=== PATIENT | female | born 1975 | race Caucasian/White ===

== ENCOUNTER 2018-09-27 14:02 | Emergency (ER) | payer MEDICAID ==
[~2018-09-27] VITALS: Ht 170.2 cm; Wt 60.8 kg
[2018-09-27 15:33] LABS: BASOPHILS % (AUTO) 0.4 % (0-1); EOSINOPHILS # (AUTO) 0.2 X10'3 (0-0.9); EOSINOPHILS % (AUTO) 2.9 % (0-6); HEMATOCRIT 40.4 % (35.0-45.0); HEMOGLOBIN 13.3 g/dl (12.0-16.0); LYMPHOCYTES % (AUTO) 26.3 % (21-51); MEAN CORPUSCULAR HEMOGLOBIN 30.8 PG (27.0-31.0); MEAN CORPUSCULAR HGB CONC 32.9 % (33.0-36.5); MEAN CORPUSCULAR VOLUME 93.6 FL (78-98); MEAN PLATELET VOLUME 7.8 FL (7.4-10.4); MONOCYTES # (AUTO) 0.5 X10'3 (0-0.9); MONOCYTES % (AUTO) 6.6 % (2-12); NEUTROPHILS # (AUTO) 4.9 X10'3 (1.8-7.7); NEUTROPHILS % (AUTO) 63.8 % (42-75); PLATELET COUNT 353 X10'3 (140-440); RED BLOOD COUNT 4.32 X10'6 (4.20-5.60); RED CELL DISTRIBUTION WIDTH 13.8 % (11.5-14.5); WHITE BLOOD COUNT 7.7 X10'3 (4.5-11.0)
[2018-09-27 15:49] LABS: ALANINE AMINOTRANSFERASE 134 U/L (12-78); ALBUMIN 4.1 G/DL (3.4-5.0); ALBUMIN/GLOBULIN RATIO 0.9 (1.1-1.5); ALKALINE PHOSPHATASE 89 IU/L (46-116); ANION GAP 12 (8-16); ASPARTATE AMINO TRANSFERASE 102 U/L (10-37); BILIRUBIN,TOTAL 0.3 MG/DL (0.1-1.0); BLOOD UREA NITROGEN 11 MG/DL (7-18); BUN/CREATININE RATIO 14.5 (6.6-38.0); CALCIUM 9.1 MG/DL (8.5-10.1); CHLORIDE 105 MMOL/L (99-107); CREATININE 0.76 MG/DL (0.40-0.90); ETHANOL 0.129 GM/DL (0.0-0.010); GLUCOSE 84 MG/DL (70-104); POTASSIUM 3.9 MMOL/L (3.5-5.1); SODIUM 143 MMOL/L (135-145); TOTAL CARBON DIOXIDE 26.4 MMOL/L (24-32); TOTAL PROTEIN 8.7 G/DL (6.4-8.2); eGFR 83 ML/MIN
--- NOTE | 2018-09-27 16:22 | NUR ---
Boyfriend in [place] [phone]. States patient has HX of Schizophrenia and is supposed to be on medication.
[2018-09-27 16:53] LABS: URINE HCG NEGATIVE (NEG)
[2018-09-27 16:54] LABS: URINE AMPHETAMINE SCREEN POSITIVE (Neg); URINE BARBITUATE SCREEN NEGATIVE (Neg); URINE BENZODIAZEPINES SCREEN NEGATIVE (Neg); URINE CANNABINOID SCREEN POSITIVE (Neg); URINE COCAINE SCREEN NEGATIVE (Neg); URINE METHADONE SCREEN NEGATIVE (Neg); URINE OPIATE SCREEN NEGATIVE (Neg); URINE PHENCYCLIDINE SCREEN NEGATIVE (Neg)
--- NOTE | 2018-09-27 17:25 | NUR ---
Patient sleeping on right side. No distress observed. Continue to monitor.
[2018-09-27] MEDS ORDERED: RISP1TAB3 PO (18:06)
[2018-09-27] MEDS ORDERED: HYDR-3686 PO (18:06)
--- NOTE | 2018-09-27 18:20 | NUR ---
Received report from GISELE Fan. Patient awake and alert on room air, in no apparent distress. In nurses' view. Will continue to monitor.
--- NOTE | 2018-09-27 19:10 | NUR ---
Patient requesting something to help her calm down and sleep; reassured that it will be given once the MD reconciles medications.
[2018-09-27] MEDS: risperiDONE 0.5mg tablet PO SCH (19:15)
[2018-09-27] MEDS: hydrOXYzine 25 MG tablet PO PRN (19:15)
--- NOTE | 2018-09-27 19:15 | NUR ---
Administered medications per MD order.
[2018-09-27] MEDS ORDERED: non-formulary drug (Risperidone 1 TAB) PO SCH (20:00)
--- NOTE | 2018-09-27 20:10 | NUR ---
Telepsych consult in progress. MD Artem speaking to patient currently.
--- NOTE | 2018-09-27 21:13 | NUR ---
Patient resting comfortably on her left side with eyes closed.
--- NOTE | 2018-09-27 22:37 | NUR ---
Patient resting on her back, no apparent distress noted.
--- NOTE | 2018-09-28 00:29 | NUR ---
Patient laying on left side with eyes closed, in no apparent distress. Resting comfortably.
--- NOTE | 2018-09-28 01:11 | NUR ---
Patient laying on right side with eyes closed.
--- NOTE | 2018-09-28 03:35 | NUR ---
Patient resting comfortably.
--- NOTE | 2018-09-28 05:13 | NUR ---
Patient laying on right side, eyes closed. 16 even and unlabored respirations. In no apparent distress.
--- NOTE | 2018-09-28 06:30 | NUR ---
Asleep upon change of shift observation. Undisturbed at this time. Respirations = 16, even and unlabored.
[2018-09-28] MEDS: risperiDONE 0.5mg tablet PO SCH (07:57)
[2018-09-28] MEDS: hydrOXYzine 25 MG tablet PO PRN ×2 (07:57→17:06)
--- NOTE | 2018-09-28 08:30 | NUR ---
Awakened for breakfast. Patient ate 100% of her meal. AM medications administered as ordered without event. Patient avoided all contact with staff. When asked a question about her safety, patient stated "Go away. I'm not answering any more questions. I said it all to the people last night." Rolled over and avoided all staff contact at this time.
--- NOTE | 2018-09-28 09:30 | NUR ---
/Boyfriend called to speak with patient. Informed she was sleeping. Asked to have patient call him back at . Family member unable to answer any questions about patient, her condition or her missing status times one week.
--- NOTE | 2018-09-28 12:30 | NUR ---
Slept until lunchtime. Awakened to eat. Ate 100% of her meal and immediately went back to sleep. Continues to ask not to be disturbed.
--- NOTE | 2018-09-28 13:31 | NUR ---
Patient is up eating lunch.
--- NOTE | 2018-09-28 15:20 | NUR ---
Remains asleep at this time. /Boyfriend called once again to speak with patient. Informed she was sleeping and would be given his number to call when she awakened.
[2018-09-28] MEDS ORDERED: nicotine 14mg patch - 24hr TD ONE (17:55)
[2018-09-28 17:56] VITALS: BP 118/83
--- NOTE | 2018-09-28 19:36 | NUR ---
Per [facility] the patient does not meet criteria for a 5150 hold. [facility] is discussing plan for discharge with the patient.
== END 2018-09-28 22:15 | disposition home or self-care (01) ==
LOC: ER 14:04
DX: F20.9 Schizophrenia, unspecified (principal); F29 Unspecified psychosis not due to a substance or known physiological condition; F17.200 Nicotine dependence, unspecified, uncomplicated; Z79.899 Other long term (current) drug therapy
CPT/HCPCS: 36415; 80053; 80305; 80320; 81025; 85025; 99285; Q0177